=== PATIENT | male | born 1940 | race Caucasian/White ===

== ENCOUNTER 2017-04-07 23:34 | Emergency (ER) | payer MEDICARE ==
[~2017-04-07] VITALS: Ht 182.9 cm; Wt 104.3 kg
[2017-04-07] MEDS ORDERED: DIPHENHYDRAMINE 50 MG/ML, 1ML ONE (23:54)
[2017-04-07] MEDS ORDERED: KETOROLAC 30 MG/1 ML ONE (23:54)
[2017-04-07] MEDS ORDERED: PROCHLORPERAZINE 5 MG/ML, 2ML ONE (23:55)
[2017-04-08] MEDS ORDERED: SODIUM CHLORIDE FLUSH 10ML SYR IVF ONE
[2017-04-08] MEDS ORDERED: PROCHLORPERAZINE 5 MG/ML, 2ML IVPush ONE
[2017-04-08] MEDS ORDERED: DIPHENHYDRAMINE 50 MG/ML, 1ML IVPush ONE
[2017-04-08] MEDS ORDERED: KETOROLAC 30 MG/1 ML IVPush ONE
[2017-04-08 00:01] LABS: HEMATOCRIT 37.7 % (39.2-51.8); HEMOGLOBIN 12.1 g/dL (13.7-18.0); WHITE BLOOD COUNT 6.2 x10^3/uL (3.4-10)
[2017-04-08 00:08] LABS: BLOOD UREA NITROGEN 28 mg/dL (7-18)
[2017-04-08] MEDS ORDERED: QUET50TA5 PO (01:43)
[2017-04-08] MEDS ORDERED: LOSA25TA5 PO (01:43)
[2017-04-08] MEDS ORDERED: DOXY100T PO (01:43)
[2017-04-08] MEDS ORDERED: APIX5TAB PO (01:43)
[2017-04-08] MEDS ORDERED: METF500T4 PO (01:43)
[2017-04-08] MEDS ORDERED: DULO30CA2 PO (01:43)
[2017-04-08] MEDS ORDERED: DILT120C9 PO (01:43)
[2017-04-08 02:00] VITALS: BP 131/74
== END 2017-04-08 02:36 | disposition home or self-care (01) ==
LOC: ED 23:59
DX: G44.219 Episodic tension-type headache, not intractable (principal)
CPT/HCPCS: 36415; 70450; 80048; 82040; 85025; 85610; 85730; 96374; 96375; 99285; J0780; J1200; J1885